=== PATIENT | female | born 1960 | race Caucasian/White ===

== ENCOUNTER 2020-05-21 18:36 | Emergency (ER) | payer BC ==
--- NOTE | 2020-05-21 19:00 | ER Document Report ---
ED Medical Screen (RME) - General Chief Complaint: Blood Pressure Problem Stated Complaint: POSSIBLE HIGH BLOOD PRESSURE Time Seen by Provider: 05/21/20 18:42 Primary Care Provider: SRIDEVI MOISE MD [Primary Care Provider] - Follow up as needed Mode of Arrival: Ambulatory Information source: Patient Notes: Patient is a 60-year-old female comes emergency room with an onset of anterior chest pain approximately 2 hours ago. Patient's primary reason for reporting to ER earlier was because of elevated blood pressure. Patient states over the past 2 days she has had a dull headache and that she took her blood pressure and it was in excess of 194/134. She is kept a log that she has with her and her blood pressure did range anywhere from the systolic 200 down to about 167 and a diastolic of 99 up to 134. Patient states she does not have any history of hypertension is on no medications. She does state that she has had some burning in her anterior chest substernally for approximately 2 hours and she currently rates it a 3 out of 5 and discomfort. Patient does not smoke. She only has a past medical history for depression and hypothyroidism. She denies any nausea or vomiting or shortness of breath. She does admit to being under some unusual stress lately. She has a family history of heart problems with her mother and her father. Patient does state that she took a 325 mg aspirin prior to coming in. Physical examination shows patient to be a well-nourished well-developed 60-year-old female no apparent distress on exam. Cardiac: Patient displays a rate of approximately 68 bpm on monitor. No murmurs were auscultated. Lungs: Bilateral breath sounds breath sounds decreased throughout but no rhonchi rales or wheeze noted. Abdomen: Bowel sounds present all 4 quads nontender to palpate. I have greeted and performed a rapid initial assessment of this patient. A comprehensive ED assessment and evaluation of the patient, analysis of test results and completion of the medical decision making process will be conducted by additional ED providers. Dictation of this chart was performed using voice recognition software; therefore, there may be some unintended grammatical errors. TRAVEL OUTSIDE OF THE [place] IN LAST 30 DAYS: No - Related Data Allergies/Adverse Reactions: No Known Allergies Allergy (Verified 05/21/20 18:46) Home Medications: escitalopram. levothyroxine Physical Exam - Vital signs Vitals: Temp Pulse Resp BP Pulse Ox 98.5 F 68 18 166/77 H 98 05/21/20 18:41 05/21/20 18:41 05/21/20 18:41 05/21/20 18:41 05/21/20 18:41 Course - Vital Signs Vital signs: Temp Pulse Resp BP Pulse Ox 98.5 F 68 18 166/77 H 98 05/21/20 18:46 05/21/20 18:41 05/21/20 18:41 05/21/20 18:41 05/21/20 18:41 Doctor's Discharge - Discharge Referrals: SRIDEVI MOISE MD [Primary Care Provider] - Follow up as needed
[2020-05-21 19:30] LABS: ABSOLUTE EOSINOPHILS # (AUTO) 0.1 10^3/uL (0.0-0.6); ABSOLUTE LYMPHOCYTES (AUTO) 3.1 10^3/uL (0.5-4.7); ABSOLUTE MONOCYTES (AUTO) 0.5 10^3/uL (0.1-1.4); BASOPHILS % (AUTO) 0.5 % (0-2); EOSINOPHILS % (AUTO) 1.9 % (0-6); HEMATOCRIT 39.6 % (36.0-47.0); HEMOGLOBIN 13.7 g/dL (12.0-15.5); LYMPHOCYTES % (AUTO) 45.4 % (13-45); MEAN CORPUSCULAR HEMOGLOBIN 29.4 pg (27.0-33.4); MEAN CORPUSCULAR HGB CONC 34.5 g/dL (32.0-36.0); MEAN CORPUSCULAR VOLUME 85 fl (80-97); MONOCYTES % (AUTO) 7.8 % (3-13); PLATELET COUNT 211 10^3/uL (150-450); RED BLOOD COUNT 4.64 10^6/uL (3.72-5.28); RED CELL DISTRIBUTION WIDTH 13.3 % (11.5-14.0); SEGMENTED NEUTROPHILS % (AUTO) 44.4 % (42-78); TOTAL CELLS COUNTED % (AUTO) 100 %; WHITE BLOOD COUNT 6.7 10^3/uL (4.0-10.5)
--- NOTE | 2020-05-21 19:31 | RADIOLOGY REPORT (SQ) ---
EXAM DESCRIPTION: CHEST SINGLE VIEW IMAGES COMPLETED DATE/TIME: 05/21/2020 7:23 pm REASON FOR STUDY: Chest pain COMPARISON: None. EXAM PARAMETERS: NUMBER OF VIEWS: One view. TECHNIQUE: Single frontal radiographic view of the chest acquired. RADIATION DOSE: NA LIMITATIONS: None. FINDINGS: LUNGS AND PLEURA: Calcified granuloma in the right lung. No opacities, masses or pneumoth orax. No pleural effusion. MEDIASTINUM AND HILAR STRUCTURES: No masses. Contour normal. HEART AND VASCULAR STRUCTURES: Heart normal in size. Normal vasculature. BONES: No acute findings. HARDWARE: None in the chest. OTHER: No other significant finding. IMPRESSION: NO ACUTE RADIOGRAPHIC FINDING IN THE CHEST. TECHNICAL DOCUMENTATION: JOB ID: [id number] [employer]- All Rights Reserved Reading location - IP/workstation name: [email or web address]
[2020-05-21] MEDS ORDERED: TENECTEPLASE INJ 50 MG KIT IV ONE (19:33)
[2020-05-21] MEDS ORDERED: NITROGLYCERIN 0.4 MG/TAB 25 TAB/BOTTLE SL ONE (19:40)
[2020-05-21] MEDS ORDERED: ASPIRIN 81 MG TABLET, CHEWABLE ONE (19:40)
[2020-05-21] MEDS ORDERED: ASPIRIN 81 MG TABLET, CHEWABLE PO ONE (19:41)
[2020-05-21 19:44] LABS: ALBUMIN 4.3 g/dL (3.5-5.0); ALKALINE PHOSPHATASE 65 U/L (38-126); ANION GAP 6 (5-19); ASPARTATE AMINO TRANSFERASE 29 U/L (14-36); BILIRUBIN,DIRECT 0.1 mg/dL (0.0-0.4); BILIRUBIN,TOTAL 0.5 mg/dL (0.2-1.3); BLOOD UREA NITROGEN 14 mg/dL (7-20); CALCIUM 9.8 mg/dL (8.4-10.2); CARBON DIOXIDE 32 mmol/L (22-30); CHLORIDE 99 mmol/L (98-107); GLUCOSE 122 mg/dL (75-110); POTASSIUM 4.2 mmol/L (3.6-5.0); TOTAL PROTEIN 7.4 g/dL (6.3-8.2)
--- NOTE | 2020-05-21 19:47 | ER Document Report ---
ED General - General Chief Complaint: Blood Pressure Problem Stated Complaint: POSSIBLE HIGH BLOOD PRESSURE Time Seen by Provider: 05/21/20 18:42 Primary Care Provider: SRIDEVI MOISE MD [Primary Care Provider] - Follow up as needed Mode of Arrival: Ambulatory Information source: Patient Notes: 05/21/20 18:46 - ED Nursing Note by BERNARDINOTILAMELANY Acct Num: [id number] : 1960 Patient Age: 60 pt reports she is having issues with her bp. states it has been up and down. states she is not currently taking any medication for her bp. reports she started taking her bp because her head was pumping. denies nausea / vomiting. reports she does have hx of high cholesterol. reports she does have some burning in the chest that started this afternoon. states only slight burning at this time. states she is under some stress. denies radiation. pt is alert and oriented. resp are even and unlabored. denies any sob. MY NOTES 60-year-old [place] female arrives with a few hours of anterior chest pressure and pain. She denies any nausea vomiting referral of pain shortness of breath diaphoresis diarrhea constipation COVID-19 hemoptysis cephalgia nuchal rigidity skin lesions. Patient reports she started to have an increased blood pressure the prior day in the morning. Patient arrives with blood pressure 166/79 TRAVEL OUTSIDE OF THE [place] IN LAST 30 DAYS: No - HPI Severity: Mild Pain Level: 2 - Related Data Allergies/Adverse Reactions: No Known Allergies Allergy (Verified 05/21/20 18:46) Home Medications: escitalopram. levothyroxine Past Medical History - General Information source: Patient - Social History Smoking Status: Unknown if Ever Smoked Cigarette use (# per day): No Chew tobacco use (# tins/day): No Smoking Education Provided: No Frequency of alcohol use: None Drug Abuse: None Lives with: Family Family History: Reviewed & Not Pertinent, Hyperlipidemia - Patient has a prior history of hyperlipidemia unsure of family members with this Patient has suicidal ideation: No Patient has homicidal ideation: No Review of Systems - Review of Systems Constitutional: See HPI, Weakness EENT: No symptoms reported Cardiovascular: See HPI, Chest pain Respiratory: No symptoms reported Gastrointestinal: No symptoms reported Genitourinary: No symptoms reported Female Genitourinary: No symptoms reported Musculoskeletal: No symptoms reported Skin: No symptoms reported Hematologic/Lymphatic: No symptoms reported Neurological/Psychological: No symptoms reported -: Yes All other systems reviewed and negative Physical Exam - Vital signs Vitals: Temp Pulse Resp BP Pulse Ox 98.5 F 68 18 166/77 H 98 05/21/20 18:41 05/21/20 18:41 05/21/20 18:41 05/21/20 18:41 05/21/20 18:41 Interpretation: Hypertensive - General General appearance: Appears well, Alert - HEENT Head: Normocephalic, Atraumatic Eyes: Normal Pupils: PERRL - Respiratory Respiratory status: No respiratory distress Chest status: Nontender Breath sounds: Normal Chest palpation: Normal - Cardiovascular Rhythm: Regular Heart sounds: Normal auscultation Murmur: No - Abdominal Inspection: Normal Distension: No distension Bowel sounds: Normal Tenderness: Nontender Organomegaly: No organomegaly - Rectal Hemorrhoids: Other - Deferred - Genitourinary Bimanuel exam: Other - Deferred - Back Back: Normal, Nontender - Extremities General upper extremity: Normal inspection, Nontender, Normal color, Normal ROM, Normal temperature General lower extremity: Normal inspection, Nontender, Normal color, Normal ROM, Normal temperature, Normal weight bearing. No: Bright's sign - Neurological Neuro grossly intact: Yes Cognition: Normal Orientation: AAOx4 [place] Coma Scale Eye Opening: Spontaneous [place] Coma Scale Verbal: Oriented [place] Coma Scale Motor: Obeys Commands Sarah Coma Scale Total: 15 Speech: Normal Motor strength normal: LUE, RUE, LLE, RLE Sensory: Normal - Psychological Associated symptoms: Normal affect, Normal mood - Skin Skin Temperature: Warm Skin Moisture: Dry Skin Color: Normal Course - Vital Signs Vital signs: Temp Pulse Resp BP Pulse Ox 98.5 F 68 20 133/90 H 98 05/21/20 18:46 05/21/20 18:41 05/21/20 19:34 05/21/20 19:45 05/21/20 19:36 - Laboratory Results Result Diagrams: 05/21/20 19:13 05/21/20 19:13 Laboratory Results Interpreted: 05/21/20 05/21/20 05/21/20 19:13 19:13 19:13 Lymph % (Auto) 45.4 H Sodium 136.9 L Carbon Dioxide 32 H Glucose 122 H Urine Ascorbic Acid 40 H Critical Laboratory Results Reviewed: Yes Attending or Supervising Physician who Reviewed Labs: TORRES BLACKWOOD JR - Radiology Results Critical Radiology Results Reviewed: Yes Attending or Supervising Physician who Reviewed Radiology: TORRES BLACKWOOD JR Critical Care Note - Critical Care Note Comments: I discussed this case with Dr. Phong Wade who advised he will call the patient tomorrow for appointment and will see her tomorrow in office. I discussed that her findings with patient and advised her her labs and x-ray are within normal limits. Discharge - Discharge Clinical Impression: Angina at rest Hypertension Qualifiers: Hypertension type: unspecified Qualified Code(s): I10 - Essential (primary) hypertension Condition: Stable Disposition: HOME, SELF-CARE Instructions: Angina Episode ([facility]) Additional Instructions: Follow-up with Dr. Wade tomorrow he will call you for appointment tomorrow. Referrals: SRIDEVI MOISE MD [Primary Care Provider] - Follow up as needed EVA WADE MD [ACTIVE STAFF] - Follow up as needed
[2020-05-21 19:52] LABS: APPEARANCE,URINE CLEAR; BILIRUBIN,URINE NEGATIVE (NEGATIVE); COLOR,URINE YELLOW; GLUCOSE, URINE NEGATIVE (NEGATIVE); KETONES,URINE NEGATIVE (NEGATIVE); LEUKOCYTE ESTERASE,URINE NEGATIVE (NEGATIVE); NITRITE,URINE NEGATIVE (NEGATIVE); PROTEIN,URINE NEGATIVE (NEGATIVE); UROBILINOGEN,URINE NEGATIVE mg/dL (<2.0)
[2020-05-21 20:05] LABS: URINE AMPHETAMINES SCREEN NEGATIVE; URINE BARBITURATES SCREEN NEGATIVE; URINE BENZODIAZEPINES SCREEN NEGATIVE; URINE COCAINE SCREEN NEGATIVE; URINE MARIJUANA (THC) SCREEN NEGATIVE; URINE METHADONE SCREEN NEGATIVE; URINE PHENCYCLIDINE SCREEN NEGATIVE
--- NOTE | 2020-05-21 20:41 | EKG REPORT ---
SEVERITY:- NORMAL ECG - SINUS RHYTHM : Confirmed by: Melanie Nicole MD 21-May-2020 20:40:39
[2020-05-21] MEDS ORDERED: PROPRANOLOL HCL 20 MG TABLET PO ONE (20:51)
[2020-05-21 21:05] VITALS: BP 147/91
== END 2020-05-21 21:23 | disposition home or self-care (01) ==
LOC: ER 18:36
DX: I20.9 Angina pectoris, unspecified (principal); I10 Essential (primary) hypertension; E78.00 Pure hypercholesterolemia, unspecified; R07.9 Chest pain, unspecified; R11.2 Nausea with vomiting, unspecified; R06.02 Shortness of breath; R61 Generalized hyperhidrosis; R19.7 Diarrhea, unspecified; K59.00 Constipation, unspecified; R04.2 Hemoptysis; R51.9 Headache, unspecified; R29.1 Meningismus
CPT/HCPCS: 93005; 99285; 36415; 82553; 82550; 85025; 80053; 81001; 84484; 80307; 71045; 93010; J3490